=== PATIENT | male | born 1965 | race Two or more races ===

== ENCOUNTER 2022-04-07 16:16 | Emergency (ER) | payer OTHER, SELFPAY ==
--- NOTE | ~2022-04-07 | XR_ITS ---
EXAMINATION: XR CHEST CLINICAL INFORMATION: Chest pain. COMPARISON: None TECHNIQUE: Frontal view of the chest was obtained. FINDINGS: No significant abnormality is noted involving the heart, lungs, mediastinum, bony thorax or soft tissues. XR/XR chest 1V IMPRESSION: No acute cardiopulmonary process.
--- NOTE | ~2022-04-07 | CT_ITS ---
EXAMINATION: CT ANGIOGRAM OF THE CHEST WITH AND WITHOUT CONTRAST (CT PULMONARY ANGIOGRAM FOR PE) CLINICAL INFORMATION: Reason for Exam Mid chest pain with shortness of breath?pe COMPARISON: None TECHNIQUE: Prior to contrast administration, noncontrast localization images were obtained. Subsequently, multidetector volumetric imaging was performed from the thoracic inlet to below the diaphragms following the administration of 75 mL Omnipaque 350 intravenous contrast. No contrast reaction reported Sagittal, coronal, and MIP oblique sagittal reformatted images were obtained on the CT workstation, uploaded to PACS, and reviewed. This CT examination was performed using dose optimization techniques as appropriate, variously including the following: *Automated exposure control *Adjustment of mA and/or kV according to patient size (this includes techniques or standardized protocols for targeted exams where dose is matched to indication/reason for exam; i.e. extremities or head) *Use of iterative reconstruction technique Total exam dose-length product 334 mGy-cm FINDINGS: QUALITY OF STUDY/CONTRAST BOLUS: Satisfactory. PULMONARY ARTERIES: No central or segmental pulmonary emboli. THORACIC AORTA: No aneurysm or dissection. LUNG: No focal consolidation, nodules or masses. PLEURA: No pleural effusion or pneumothorax. MEDIASTINUM: Normal heart size. No pericardial effusion. No hilar or mediastinal lymphadenopathy. No evidence of septal bowing or right heart strain. CHEST WALL/AXILLA: No axillary or internal mammary lymphadenopathy. OSSEOUS STRUCTURES: No acute or suspicious osseous abnormality. UPPER ABDOMEN: Gallstones. No reflux of contrast into the hepatic veins to suggest elevated right heart pressures. CT/CT angio chest PE protocol IMPRESSION: No evidence of pulmonary embolism. Gallstones. VTE: negative
--- NOTE | 2022-04-07 16:18 | ECG_ITS ---
Test Reason : cp Blood Pressure : / mmHG Vent. Rate : 060 BPM Atrial Rate : 060 BPM P-R Int : 154 ms QRS Dur : 090 ms QT Int : 378 ms P-R-T Axes : 063 022 009 degrees QTc Int : 378 ms Normal sinus rhythm Normal ECG No previous ECGs available Referred By: Generic ED Physician Electronically Signed By:DENITA LUX MD
[2022-04-07 16:26] VITALS: BP 146/85; PULSE 70; RESP 18; TEMP 36.4; O2SAT 97; BMI 31.6
[2022-04-07 16:30] LABS: Basophils Percent Auto 0.4 % (0-2); Eosinophils Percent Auto 0.4 % (0-4); Hematocrit 41.8 % (42.0-52.0); Hemoglobin 14.5 g/dl (14.0-18.0); Imm Gran Abs Auto 0.04 X10*3/uL (0.00-0.03); Imm Gran Pct Auto 0.4 % (0.0-0.4); Lymphocytes Absolute Auto 1.7 X10*3/uL (1.2-4.9); Lymphocytes Percent Auto 15.6 % (20-40); MANUAL DIFF FLAG NO; Mean Corpuscular HGB Conc 34.7 g/dl (31.0-36.0); Mean Corpuscular Hemoglobin 32.3 pg (27.0-33.0); Mean Corpuscular Volume 93.1 fL (80.0-98.0); Mean Platelet Volume 9.2 fL (9.4-12.4); Monocytes Absolute Auto 0.8 X10*3/uL (0.1-1.2); Monocytes Percent Auto 7.5 % (2-11); Neutrophils Absolute Auto 8.1 x10*3/uL (2.0-8.3); Neutrophils Percent Auto 75.7 % (45-73); Platelet Count 221 X10*3/uL (160-400); Red Blood Count 4.49 X10*6/uL (4.60-5.80); Red Cell Distribution Width 11.9 % (11.0-16.0); White Blood Count 10.7 X10*3/uL (4.8-10.8)
[2022-04-07 16:46] LABS: Anion Gap 16 (12-20); Blood Urea Nitrogen 21 mg/dL (9-16); Carbon Dioxide 25 mmol/L (22-29); Chloride 106 mmol/L (96-108); Creatinine Clr Calc Pharmacy 76.1; Estimated Glomerular Filt Rate > 60; Glucose Random 123 mg/dL (60-115); Potassium 4.9 mmol/L (3.3-5.1); Sodium 142 mmol/L (135-145)
[2022-04-07 16:53] LABS: Troponin-I High Sensitivity < 3.5 ng/L (<3.5-35.0)
--- NOTE | 2022-04-07 21:46 | ED_ITS ---
HPI - Chest Pain General Chief Complaint: Chest Pain Stated Complaint: chest pain Time Seen by Provider: 04/07/22 21:46 Source: patient Mode of arrival: ambulatory Limitations: no limitations History of Present Illness HPI narrative: Patient with no significant past medical history noticed mid chest pain into the back since 13:00 while working had the air blower on his back for just 1 hour patient has similar pain about 2 months ago lasted only for few hours. No abdominal pain no nausea no vomiting no family history of sudden cardiac no history of substance abuse Related Data Previous Rx's Medication Instructions Recorded cyclobenzaprine 10 mg tablet 10 mg PO Q8H #20 tabs 04/07/22 ibuprofen 600 mg tablet 600 mg PO Q6H PRN pain #30 tabs 04/07/22 tramadol 50 mg tablet 50 mg PO Q6H PRN pain #20 tabs 04/07/22 Allergies Allergy/AdvReac Type Severity Reaction Status Date / Time No Known Allergies Allergy Verified 04/07/22 16:26 Review of Systems Review of Systems: Yes all other systems are reviewed and are negative [facility] Social History Social History Advance Directives: No Advance Directives Information Provided: No Physical Exam Vital Signs: Vital Signs: Last Vital Signs Temp 98.1 F 04/07/22 23:35 Pulse 56 04/07/22 23:35 Resp 15 04/07/22 23:35 BP 155/81 H 04/07/22 23:35 Pulse Ox 98 04/07/22 23:35 O2 Del Method 04/07/22 23:35 BMI result Body Mass Index 31.6 Appearance: Alert. Oriented X3. No acute distress. Eyes: PERRLA, No Nystagmus ENT: Pharynx normal. Oral Mucosa moist Neck: Normal inspection. Neck supple. CVS: Normal heart rate and rhythm. Pulses normal. Respiratory: No respiratory distress. Equal air entry bilateral, no wheezing/rales/rhonchi tenderness to touch but chest in the front and on the rhomboids area in the back Abdomen: Soft and nontender. Bowel sounds are present, no mass palpable, no CVA tenderness Skin: Skin warm and dry. Normal skin color. Normal skin turgor. Extremities: No lower extremity edema. No calf tenderness Neuro: Oriented X 3. MDM - Chest Pain MDM Narrative Medical decision making narrative: Patient with clinically musculoskeletal pain tender to touch rhomboids area and mid chest sternum denies any pain in the abdomen Guerrero sign is negative CT chest was done to rule out PE as patient was complaining of severe pain which is negative incidentally noticed to have gallstones. Will discharge patient home on pain medication 2 sets of cardiac enzymes negative Lab Data Attestation: I reviewed the patient's lab results. Result diagrams: 04/07/22 16:24 04/07/22 16:24 Labs: Lab Results 04/07/22 04/07/22 04/07/22 Range/Units 16:24 16:24 16:24 WBC 10.7 (4.8-10.8) X10*3/uL RBC 4.49 L (4.60-5.80) X10*6/uL Hgb 14.5 (14.0-18.0) g/dl Hct 41.8 L (42.0-52.0) % MCV 93.1 (80.0-98.0) fL MCH 32.3 (27.0-33.0) pg MCHC 34.7 (31.0-36.0) g/dl RDW 11.9 (11.0-16.0) % Plt Count 221 (160-400) X10*3/uL MPV 9.2 L (9.4-12.4) fL Immature Gran % (Auto) 0.4 (0.0-0.4) % Neut % (Auto) 75.7 H (45-73) % Lymph % (Auto) 15.6 L (20-40) % [place] % (Auto) 7.5 (2-11) % Eos % (Auto) 0.4 (0-4) % Baso % (Auto) 0.4 (0-2) % Lymph # (Auto) 1.7 (1.2-4.9) X10*3/uL [place] # (Auto) 0.8 (0.1-1.2) X10*3/uL Eos # (Auto) 0.0 (0.0-0.4) X10*3/uL Baso # (Auto) 0.0 (0.0-0.2) X10*3/uL Abs Immat Gran (auto) 0.04 H (0.00-0.03) X10*3/uL Absolute Neuts (auto) 8.1 (2.0-8.3) x10*3/uL Absolute Nucleated RBC 0.000 (0.0-0.012) X10*3/uL Nucleated RBC % (auto) 0.0 (0.0-0.2) /100WBC PT (10.0-13.1) SEC INR (0.9-1.1) Sodium 142 (135-145) mmol/L Potassium 4.9 (3.3-5.1) mmol/L Chloride 106 (96-108) mmol/L Carbon Dioxide 25 (22-29) mmol/L Anion Gap 16 (12-20) BUN 21 H (9-16) mg/dL Creatinine 1.12 (0.5-1.4) mg/dL Estim Creat Clear Calc 76.1 Estimated GFR > 60 Random Glucose 123 H (60-115) mg/dL Calcium 9.0 (8.4-10.2) mg/dL Troponin I High Sens < 3.5 (<3.5-35.0) ng/L 04/07/22 04/07/22 Range/Units 22:08 22:08 WBC (4.8-10.8) X10*3/uL RBC (4.60-5.80) X10*6/uL Hgb (14.0-18.0) g/dl Hct (42.0-52.0) % MCV (80.0-98.0) fL MCH (27.0-33.0) pg MCHC (31.0-36.0) g/dl RDW (11.0-16.0) % Plt Count (160-400) X10*3/uL MPV (9.4-12.4) fL Immature Gran % (Auto) (0.0-0.4) % Neut % (Auto) (45-73) % Lymph % (Auto) (20-40) % [place] % (Auto) (2-11) % Eos % (Auto) (0-4) % Baso % (Auto) (0-2) % Lymph # (Auto) (1.2-4.9) X10*3/uL [place] # (Auto) (0.1-1.2) X10*3/uL Eos # (Auto) (0.0-0.4) X10*3/uL Baso # (Auto) (0.0-0.2) X10*3/uL Abs Immat Gran (auto) (0.00-0.03) X10*3/uL Absolute Neuts (auto) (2.0-8.3) x10*3/uL Absolute Nucleated RBC (0.0-0.012) X10*3/uL Nucleated RBC % (auto) (0.0-0.2) /100WBC PT 12.0 (10.0-13.1) SEC INR 1.0 (0.9-1.1) Sodium (135-145) mmol/L Potassium (3.3-5.1) mmol/L Chloride (96-108) mmol/L Carbon Dioxide (22-29) mmol/L Anion Gap (12-20) BUN (9-16) mg/dL Creatinine (0.5-1.4) mg/dL Estim Creat Clear Calc Estimated GFR Random Glucose (60-115) mg/dL Calcium (8.4-10.2) mg/dL Troponin I High Sens < 3.5 (<3.5-35.0) ng/L ECG Data ECG #1: Interpretation: Normal sinus rhythm heart rate 60 beats per minute normal interval normal axis no acute changes no acute ischemic Scores Heart Score History: -0- slightly suspicious ECG: -0- normal Age: -1- >45 - <65 Risk factory: -0- no risk factors known Troponin: -0- < or = normal limit Score: 1 Risk: 1.7% Discharge Plan Discharge Clinical Impression: Musculoskeletal chest pain, Gallstone Patient Disposition: Home, Self-Care Instructions: Gallstones (ED), Chest Wall Pain (ED) Additional Instructions: You have incidental finding of gallstones in the abdomen, your pain in the chest is likely musculoskeletal Follow-up with your PCP Avoid fried food Follow-up with surgeon if pain in abdomen get worse Tiene un hallazgo incidental de c?lculos biliares en el abdomen, es probable que bryan dolor en el pecho sea musculoesquel?josh Seguimiento con bryan PCP Ashley la comida frita Seguimiento con el cirujano si el dolor en el abdomen empeora Prescriptions: New cyclobenzaprine 10 mg tablet 10 mg PO Q8H Qty: 20 0RF tramadol 50 mg tablet 50 mg PO Q6H PRN (Reason: pain) Qty: 20 0RF ibuprofen 600 mg tablet 600 mg PO Q6H PRN (Reason: pain) Qty: 30 0RF Referrals: Talon Mendez MD [Physician] - 1 week Print Language: Pakistani
[2022-04-07 22:16] VITALS: BP 130/79; PULSE 62; RESP 16; TEMP 36.8; O2SAT 96
[2022-04-07] MEDS: Ketorolac Tromethamine 30 MG/ML VIAL IVPUSH (22:18)
[2022-04-07 22:36] LABS: Troponin-I High Sensitivity < 3.5 ng/L (<3.5-35.0)
[2022-04-07] MEDS: iohexoL 350 MG/ML 100 ML INFUS..BTL IV (22:42)
[2022-04-07 23:35] VITALS: BP 155/81; PULSE 56; RESP 15; TEMP 36.7; O2SAT 98
[2022-04-07 23:44] LABS: Alanine Aminotransferase 44 U/L (0-40); Albumin Level 4.3 g/dL (3.5-5.0); Alkaline Phosphatase 66 U/L (39-117); Aspartate Amino Transferase 44 U/L (5-37); Bilirubin Direct 0.2 mg/dL (0.0-0.5); Bilirubin Total 0.4 mg/dL (0.0-1.0); Lipase 37 U/L (8-78); Total Protein 7.4 g/dL (6.5-8.0)
[2022-04-07] MEDS: Cyclobenzaprine HCl 10 MG TABLET PO (23:56)
[2022-04-07] MEDS: traMADoL HCL 50 MG TABLET PO (23:57)
== END 2022-04-08 00:02 | disposition home or self-care (01) ==
PROVIDERS: Emergency Provider Internal Medicine
DX: R07.89 Other chest pain (principal); K80.20 Calculus of gallbladder without cholecystitis without obstruction
CPT/HCPCS: 36415; 71045; 71275; 80048; 80076; 83690; 84484; 85025; 85610; 93005; 96374; 99284; J1885; Q9967

== ENCOUNTER 2022-09-30 09:07 | Emergency (ER) | payer OTHER, SELFPAY ==
--- NOTE | ~2022-09-30 | MR_ITS ---
EXAMINATION: MR CHOLANGIOPANCREATOGRAPHY CLINICAL INFORMATION: Reason for Exam RUQ pain, gallstone in cystic duct vs common duct. COMPARISON: CT from today. TECHNIQUE: Multiple routine MRI sequences through the abdomen were obtained. Heavily T2 weighted images were performed utilizing a dedicated MRCP technique. Contrast was not utilized for the study. FINDINGS: Biliary system: The common bile duct is normal in course and caliber with no evidence for intra-or extrahepatic biliary ductal dilatation. Common bile duct measures 0.3 cm. No intraluminal filling defects are appreciated. The cystic duct is also well visualized, not showing any filling defect. It should be noted that the stones which were seen in the gallbladder on prior CT are also not clearly visualized on this MRI. Gallbladder: The stone seen on prior CT are not visualized. No wall thickening or adjacent inflammation. Pancreatic duct: The pancreatic duct is normal in course and caliber with no evidence for pancreatic ductal obstruction. Liver parenchyma is homogeneous in signal with no focal hepatic lesion appreciated. No visualized abnormalities are seen in the kidneys, adrenals, pancreatic parenchyma, or spleen. MR/MR MRCP IMPRESSION: 1. No biliary ductal dilatation. No intraluminal filling defects seen within the common bile duct or cystic duct. 2. The gallstones seen on prior CT are not visualized on this MRI.
--- NOTE | ~2022-09-30 | CT_ITS ---
EXAMINATION: CT ABDOMEN WITHOUT CONTRAST CLINICAL INFORMATION: Right upper quadrant pain COMPARISON: CT angiogram chest 04/07/2020 TECHNIQUE: Contiguous axial thin section helical images of the abdomen were performed without contrast. The data set was reformatted in the coronal and sagittal planes and reviewed on an independent workstation. This CT examination was performed using dose optimization techniques as appropriate, variously including the following: *Automated exposure control *Adjustment of mA and/or kV according to patient size (this includes techniques or standardized protocols for targeted exams where dose is matched to indication/reason for exam; i.e. extremities or head) *Use of iterative reconstruction technique DLP: 587 mGy-cm FINDINGS: LUNG BASES: 4 mm pleural-based right lower lobe pulmonary nodule unchanged when compared to 04/07/2022. Interstitial prominence that had been present previously is no longer seen. LIVER, GALLBLADDER, AND BILIARY TREE: The liver is normal in size, shape, and attenuation. No focal hepatic lesion or biliary ductal dilatation is present. The gallbladder is distended with stones in the gallbladder neck and possibly cystic duct. Gallbladder stones were seen at the time of the 04/07/2022 study but stone in the cystic duct was not present at that time. PANCREAS: Unremarkable. SPLEEN: Unremarkable. ADRENAL GLANDS: Unremarkable. KIDNEYS AND URETERS: The kidneys are normal in size, shape, and attenuation. There is a single tiny 2 mm nonobstructing punctate calcification in the mid left kidney (7:52). No hydronephrosis, hydroureter, or additional calculi seen. No perinephric stranding. BLADDER: Unremarkable. GASTROINTESTINAL TRACT: The small and large bowel are unremarkable. The appendix is unremarkable. ABDOMINAL WALL: No significant hernia is appreciated. LYMPH NODES: No retroperitoneal lymphadenopathy. VASCULAR: Unremarkable. PELVIC VISCERA: Mild BPH. Seminal vesicles normal OSSEOUS STRUCTURES: Mild degenerative changes are present in the spine. CT/CT abdomen wo IV con IMPRESSION: 1. Distended gallbladder with stones in the gallbladder neck and possibly cystic duct. Gallbladder stones were seen at the time of the 04/07/2022 study but stone in the cystic duct was not present at that time. If further evaluation is needed, right upper quadrant ultrasound may be of value. 2. Tiny punctate nonobstructing left renal calculus. 3. Mild BPH. 4. 4 mm right lower lobe pulmonary nodule unchanged when compared to 04/07/2020. Fleischner guidelines were followed.
[2022-09-30 09:16] VITALS: BP 177/92; PULSE 70; RESP 18; TEMP 36.8; O2SAT 99; BMI 31.6
[2022-09-30] MEDS: Ketorolac Tromethamine 30 MG/ML VIAL IVPUSH (09:40)
[2022-09-30 09:41] LABS: MANUAL DIFF FLAG NO
--- NOTE | 2022-09-30 09:43 | PC.NURSE ---
patient a/ox4 . slickrla . heart rate regular at 70 beats per minute . breathing even and unlabored . skin moist pink and warm . abdomen tight . rebound rebound tenderness noted in right flank that patient report radiates to his back . reports 10 out of 10 pain . patient is tearful . IV placed in left forearm . labs obtained and sent . IVP toradal administered for pain as ordered . patient to CT for images . patient aware of plan of care .
[2022-09-30 09:44] LABS: Basophils Percent Auto 0.2 % (0-2); Eosinophils Percent Auto 0.1 % (0-4); Hematocrit 43.3 % (42.0-52.0); Hemoglobin 15.3 g/dl (14.0-18.0); Imm Gran Abs Auto 0.03 X10*3/uL (0.00-0.03); Imm Gran Pct Auto 0.4 % (0.0-0.4); Lymphocytes Absolute Auto 0.8 X10*3/uL (1.2-4.9); Lymphocytes Percent Auto 9.8 % (20-40); Mean Corpuscular HGB Conc 35.3 g/dl (31.0-36.0); Mean Corpuscular Volume 90.6 fL (80.0-98.0); Mean Platelet Volume 9.1 fL (9.4-12.4); Monocytes Absolute Auto 0.4 X10*3/uL (0.1-1.2); Monocytes Percent Auto 4.3 % (2-11); Neutrophils Absolute Auto 7.2 x10*3/uL (2.0-8.3); Neutrophils Percent Auto 85.2 % (45-73); Platelet Count 216 X10*3/uL (160-400); Red Blood Count 4.78 X10*6/uL (4.60-5.80); Red Cell Distribution Width 11.5 % (11.0-16.0); White Blood Count 8.4 X10*3/uL (4.8-10.8)
[2022-09-30 10:01] LABS: Alanine Aminotransferase 80 U/L (0-40); Albumin Level 4.3 g/dL (3.5-5.0); Alkaline Phosphatase 80 U/L (39-117); Anion Gap 17 (12-20); Aspartate Amino Transferase 29 U/L (5-37); Bilirubin Total 0.5 mg/dL (0.0-1.0); Blood Urea Nitrogen 15 mg/dL (9-16); Calcium 9.5 mg/dL (8.4-10.2); Carbon Dioxide 23 mmol/L (22-29); Chloride 106 mmol/L (96-108); Creatinine Clr Calc Pharmacy 92.6; Estimated Glomerular Filt Rate > 60; Glucose Random 154 mg/dL (60-115); Magnesium 1.9 mg/dL (1.6-2.6); Potassium 4.1 mmol/L (3.3-5.1); Sodium 142 mmol/L (135-145); Total Protein 7.6 g/dL (6.5-8.0)
[2022-09-30] MEDS: oxyCODONE HCl Immed Release 5 MG TABLET PO (10:37)
[2022-09-30 10:38] VITALS: BP 155/94; PULSE 64; RESP 18; TEMP 36.7; O2SAT 98
--- NOTE | 2022-09-30 10:40 | PC.NURSE ---
patient medicated with 5mg oxycodone per orders for pain level of 5 out of 10 in his abdomen / right flank area that radiates to his back . . patient reports some relief from his pain from the toradol IVP previously administered . patient is aware of plan of care .
[2022-09-30 10:42] LABS: Amylase 63 U/L (28-100); Lipase 15 U/L (8-78)
--- NOTE | 2022-09-30 12:37 | PC.NURSE ---
patient transport to MRI for imaging . patient aware o plan of care.
[2022-09-30 14:11] VITALS: BP 132/87; PULSE 68; RESP 16; O2SAT 95
--- NOTE | 2022-09-30 14:31 | ED.ABDPAIN ---
HPI - Abdominal Pain General Chief Complaint: Abdominal Pain Stated Complaint: abdominal pain Time Seen by Provider: 09/30/22 09:10 Source: patient Mode of arrival: ambulatory Limitations: language barrier History of Present Illness HPI narrative: 56 year old Swiss-speaking male past medical history gallstones presents the emergency department with complaints of RUQ abdominal and flank pain starting this morning with associated nausea and vomiting. He describes the pain as continuous, aching, 10/10. He reports he has modified his diet since his initial diagnosis of gallstones and manged his weight. He reports he has been eating larger meals at night and is concerned that this may be leading to his pain. He denies any melena, hematochezia, hematemesis. Pt denies any recent illness, sick contacts, paresthesias, weakness, fever, chills, nausea, vomiting, diarrhea, constipation, headache, or vision changes. MD elicited complaint: abdominal pain Onset (ago): hour(s) Pain Consistency: constant Location: RUQ Severity: similar to previous episodes Pain scale (0-10): 10 Quality: aching Radiation: none Migration to: no migration Exacerbating factors: movement Relieving factors: nothing Associated symptoms: denies other symptoms Related Data Previous Rx's Medication Instructions Recorded cyclobenzaprine 10 mg tablet 10 mg PO Q8H #20 tabs 04/07/22 ibuprofen 600 mg tablet 600 mg PO Q6H PRN pain #30 tabs 04/07/22 tramadol 50 mg tablet 50 mg PO Q6H PRN pain #20 tabs 04/07/22 oxycodone 5 mg capsule 5 mg PO BID PRN pain #5 caps 09/30/22 Allergies Allergy/AdvReac Type Severity Reaction Status Date / Time No Known Allergies Allergy Verified 04/07/22 16:26 Review of Systems Review of Systems In addition to documented HPI above, the additional ROS was obtained: CONSTITUTIONAL: Denies fever, chills, weakness, fatigue, headache, night sweats, or weight loss EYES: Denies vision changes, eye pain, swelling, redness, foreign body, discharge ENT: Hearing normal. Denies sore throat, swallowing difficulty, throat tightness, hoarse voice, congestion, or ear pain CV: Denies chest pain or epigastric pain. No edema, palpitations, or dyspnea on exertion RESP: Denies shortness of breath. Denies cough, wheezing, dyspnea. Denies smoke exposure GI: Denies constipation or diarrhea. No hematemesis, melena, or hematochezia. : Denies dysuria, urinary frequency, urinary incontinence/retention, urgency. Denies flank pain or hematuria MSK: Denies recent trauma, change in gait, myalgias, joint swelling or pain SKIN: Denies no lesions, rashes, or sores NEURO: Denies new numbness, tingling, dizziness, paresthesias or weakness. No loss of consciousness. Denies headache ENDOCRINE: Denies unexpected weight loss. Denies polyuria, polydipsia. No temperature intolerance HEME/ONC: Denies bleeding disorders, easy bruising, or lymphadenopathy PSYCH: Denies anxiety/panic, depression, SI/HI, or social issues. Yes all other systems are reviewed and are negative [facility] Past Medical History Attestation statement: The following information was validated with the patient. Source: old records reviewed Social History Social History Alcohol intake: never Smoked in Last 30 Days: No Advance Directives: No Physical Exam ED Vital Signs: Vital Signs - 24 hr 09/30/22 09:16 09/30/22 10:38 09/30/22 14:11 Temperature 98.2 F 98.0 F Pulse Rate 70 64 68 Respiratory Rate 18 18 16 Blood Pressure 177/92 H 155/94 H 132/87 Pulse Oximetry 99 98 95 Oxygen Delivery Method Room Air Room Air Room Air 09/30/22 15:15 Temperature 97.9 F Pulse Rate 88 Respiratory Rate 18 Blood Pressure 138/87 Pulse Oximetry 97 Oxygen Delivery Method Room Air BMI result Body Mass Index 31.6 Nursing notes and vital signs reviewed. GENERAL APPEARANCE: A&0 x 4, generally well appearing, appears uncomfortable HENMT: Normal to inspection, atraumatic, face symmetrical. Normal external ears, nose, and oropharynx clear. EYE: PERRLA, EOM intact, structures appear normal NECK: Supple without lymphadenopathy. No stiffness or restricted ROM. CHEST: Normal to inspection HEART: Normal rate and regular rhythm, normal S1/S2, no M/R/G LUNGS: LS CTA, moving air well. Able to speak in complete sentences. No crackles, wheezes, or rhonchi auscultated ABDOMEN: Soft, nondistended, tender in RUQ. Normal bowel sounds noted BACK: No CVAT, no obvious deformity EXTREMITIES: Moving all extremities without difficulty. No cyanosis, clubbing, or edema. Normal capillary refill. NEUROLOGICAL: Alert and oriented, moving all 4 extremities with equal strength. CN not formally tested but appearing grossly intact. Observed to ambulate with normal gait. Cognition normal SKIN: Warm and dry without any lesions, rash, or visible sores PSYCH: Cooperative, normal affect, normal thought process Course Course Course Narrative: 09: Plan for bloodwork including amylase and lipase. CT abdomen ordered. IV toradol ordered for pain. 1045: Spoke with Dr Goodwin, general surgeon service delivery management consultant, regarding pt with recommendation for MRCP 1315: MRCP showing no biliary dilation, no defects within common bile duct or cystic duct. No gallbladder wall thickening, Medical Decision Making Medical Decision Making [facility] Narrative: 56 year old Swiss-speaking male past medical history gallstones presents the emergency department with complaints of RUQ abdominal and flank pain starting this morning with associated nausea and vomiting. Toradol and Oxycodone given with reduction in pain. Blood work unremarkable. CT abdomen showing distended gallbladder with stones in the gallbladder neck and possibly cystic duct, small nonobstructing left renal calculi, mild BPH, and a 4 mm right lower lobe pulmonary nodule that is unchanged when compared to previous CT done on 04/07/20. MRCP showing no biliary duct dilation, no visualization of gallstones previously seen on CT. History, physical, and diagnosis consistent with biliary colic. Low suspicion for peptic ulcer disease, acute cholycystitis, liver disease, GERD. Patient is safe for discharge at this time with plan to manage discomfort with [id number] Tylenol and/or NSAIDS, and prescribed oxycodone as directed. HPI, PE, diagnostics, and plan discussed with patient and family with no unanswered questions at this time. Patient educated to return to the emergency department with new, worsening, or concerning emergent symptoms. Recommended to follow-up with there primary care provider in addition to general surgery for further treatment and management. *Refer to Course for additional information on consultations, diagnostic interpretation, consultations, emergency department stay, conversations with patient and family, shared decision making with patient, and more information on medical decision making* Lab Data [facility] Lab Attestation statement: I reviewed the patient's lab results. 09/30/22 09:36 09/30/22 09:36 Labs: Lab Results 09/30/22 09/30/22 Range/Units 09:36 09:36 WBC 8.4 (4.8-10.8) X10*3/uL RBC 4.78 (4.60-5.80) X10*6/uL Hgb 15.3 (14.0-18.0) g/dl Hct 43.3 (42.0-52.0) % MCV 90.6 (80.0-98.0) fL MCH 32.0 (27.0-33.0) pg MCHC 35.3 (31.0-36.0) g/dl RDW 11.5 (11.0-16.0) % Plt Count 216 (160-400) X10*3/uL MPV 9.1 L (9.4-12.4) fL Immature Gran % (Auto) 0.4 (0.0-0.4) % Neut % (Auto) 85.2 H (45-73) % Lymph % (Auto) 9.8 L (20-40) % Redwood % (Auto) 4.3 (2-11) % Eos % (Auto) 0.1 (0-4) % Baso % (Auto) 0.2 (0-2) % Lymph # (Auto) 0.8 L (1.2-4.9) X10*3/uL [place]wood # (Auto) 0.4 (0.1-1.2) X10*3/uL Eos # (Auto) 0.0 (0.0-0.4) X10*3/uL Baso # (Auto) 0.0 (0.0-0.2) X10*3/uL Abs Immat Gran (auto) 0.03 (0.00-0.03) X10*3/uL Absolute Neuts (auto) 7.2 (2.0-8.3) x10*3/uL Absolute Nucleated RBC 0.000 (0.0-0.012) X10*3/uL Nucleated RBC % (auto) 0.0 (0.0-0.2) /100WBC Sodium 142 (135-145) mmol/L Potassium 4.1 (3.3-5.1) mmol/L Chloride 106 (96-108) mmol/L Carbon Dioxide 23 (22-29) mmol/L Anion Gap 17 (12-20) BUN 15 (9-16) mg/dL Creatinine 0.92 (0.5-1.4) mg/dL Estim Creat Clear Calc 92.6 Estimated GFR > 60 Random Glucose 154 H (60-115) mg/dL Calcium 9.5 (8.4-10.2) mg/dL Magnesium 1.9 (1.6-2.6) mg/dL Total Bilirubin 0.5 (0.0-1.0) mg/dL AST 29 (5-37) U/L ALT 80 H (0-40) U/L Alkaline Phosphatase 80 (39-117) U/L Total Protein 7.6 (6.5-8.0) g/dL Albumin 4.3 (3.5-5.0) g/dL Amylase 63 (28-100) U/L Lipase 15 (8-78) U/L Radiology Impression Discussion of test interpretation with radiology: I have reviewed the radiologist's reading. Radiologist Impression: I have independently reviewed the CT abdomen showing distended gallbladder with stones in the gallbladder neck and possibly cystic duct, small nonobstructing left renal calculi, mild BPH, and a 4 mm right lower lobe pulmonary nodule that is unchanged when compared to previous CT done on 04/07/2020 EXAMINATION: CT ABDOMEN WITHOUT CONTRAST CLINICAL INFORMATION: Right upper quadrant pain? COMPARISON: CT angiogram chest 04/07/2020? TECHNIQUE: Contiguous axial thin section helical images of the abdomen were performed without contrast. The data set was reformatted in the coronal and sagittal planes and reviewed on an independent workstation. This CT examination was performed using dose optimization techniques as appropriate, variously including the following: *Automated exposure control *Adjustment of mA and/or kV according to patient size (this includes techniques or standardized protocols for targeted exams where dose is matched to indication/reason for exam; i.e. extremities or head) *Use of iterative reconstruction technique DLP: 587 mGy-cm FINDINGS: LUNG BASES: 4 mm pleural-based right lower lobe pulmonary nodule unchanged when compared to 04/07/2022. Interstitial prominence that had been present previously is no longer seen. LIVER, GALLBLADDER, AND BILIARY TREE: The liver is normal in size, shape, and attenuation. No focal hepatic lesion or biliary ductal dilatation is present. The gallbladder is distended with stones in the gallbladder neck and possibly cystic duct. Gallbladder stones were seen at the time of the 04/07/2022 study but stone in the cystic duct was not present at that time. PANCREAS: Unremarkable.? SPLEEN: Unremarkable.? ADRENAL GLANDS: Unremarkable.? KIDNEYS AND URETERS: The kidneys are normal in size, shape, and attenuation. There is a single tiny 2 mm nonobstructing punctate calcification in the mid left kidney (7:52). No hydronephrosis, hydroureter, or additional calculi seen. No perinephric stranding. ? BLADDER: Unremarkable.? GASTROINTESTINAL TRACT: The small and large bowel are unremarkable. The appendix is unremarkable.? ABDOMINAL WALL: No significant hernia is appreciated.? LYMPH NODES: No retroperitoneal lymphadenopathy. VASCULAR: Unremarkable. PELVIC VISCERA: Mild BPH. Seminal vesicles normal? OSSEOUS STRUCTURES: Mild degenerative changes are present in the spine. ? CT/CT abdomen wo IV con IMPRESSION: 1.? Distended gallbladder with stones in the gallbladder neck and possibly cystic duct. Gallbladder stones were seen at the time of the 04/07/2022 study but stone in the cystic duct was not present at that time. If further evaluation is needed, right upper quadrant ultrasound may be of value. 2.? Tiny punctate nonobstructing left renal calculus. 3.? Mild BPH. 4.? 4 mm right lower lobe pulmonary nodule unchanged when compared to 04/07/2020. ? Fleischner guidelines were followed. ? Dictated By: Jim Servin MD Signed By: <Electronically signed by Jim Servin MD in OV> 09/30/22 1020 DD/ 0958 TD/TT:? Calculating Machine Mechanic: SS I have independently reviewed the MRCP showing no biliary duct dilation, no visualization of gallstones previously seen on CT. EXAMINATION: MR CHOLANGIOPANCREATOGRAPHY CLINICAL INFORMATION: Reason for Exam RUQ pain, gallstone in cystic duct vs common duct. COMPARISON: CT from today. TECHNIQUE: Multiple routine MRI sequences through the abdomen were obtained. Heavily T2 weighted images were performed utilizing a dedicated MRCP technique. Contrast was not utilized for the study. FINDINGS: Biliary system: The common bile duct is normal in course and caliber with no evidence for intra-or extrahepatic biliary ductal dilatation. Common bile duct measures 0.3 cm. No intraluminal filling defects are appreciated. The cystic duct is also well visualized, not showing any filling defect. It should be noted that the stones which were seen in the gallbladder on prior CT are also not clearly visualized on this MRI. Gallbladder:? The stone seen on prior CT are not visualized. No wall thickening or adjacent inflammation. Pancreatic duct: The pancreatic duct is normal in course and caliber with no evidence for pancreatic ductal obstruction. Liver parenchyma is homogeneous in signal with no focal hepatic lesion appreciated. No visualized abnormalities are seen in the kidneys, adrenals, pancreatic parenchyma, or spleen. MR/MR MRCP IMPRESSION: 1.? No biliary ductal dilatation. No intraluminal filling defects seen within the common bile duct or cystic duct. 2.? The gallstones seen on prior CT are not visualized on this MRI. ? Dictated By: Pool Bunn MD Signed By: <Electronically signed by Pool Bunn MD in OV> 09/30/22 1311 DD/ 1245 TD/TT:? Calculating Machine Mechanic: ECOH Medications Administered Discontinued Medications Generic Name Dose Route Start Last Admin Trade Name Freq PRN Reason Stop Dose Admin Ketorolac Tromethamine 30 mg 09/30/22 09:21 09/30/22 09:40 Ketorolac Tromethamine 30 Mg/Ml Vial IVPUSH 09/30/22 09:22 30 mg ONCE ONE Administration Oxycodone HCl 5 mg 09/30/22 10:01 09/30/22 10:37 Oxycodone Hcl Immed Release 5 Mg Tablet PO 09/30/22 10:02 5 mg ONCE ONE Administration Discharge Plan Discharge Clinical Impression: Abdominal pain, Gallstones Patient Disposition: Home, Self-Care Instructions: Gallstones (ED), Abdominal Pain (ED) Additional Instructions: Experts recommend the following to help prevent gallstones: Eat more foods that are high in?fiber such as: fruits, vegetables, beans, and peas. whole grains including brown rice, oats, and whole wheat bread. Eat fewer?refined carbohydrates and less sugar. Eat healthy?fats like fish oil and olive oil, to help your?gallbladder?contract and empty on a regular basis. Avoid unhealthy fats, like those often found in desserts and fried foods. Please return to the emergency department new, worsening, or concerning emergent symptoms. Please follow-up with the primary care provider in addition to general surgery for further treatment and management. Oxycodone has been prescribed to your preferred pharmacy for control of pain. Please do not drive, drink alcohol, or use any sedating drugs/medications when taking Oxycodone Prescriptions: New oxycodone 5 mg capsule 5 mg PO BID PRN (Reason: pain) Qty: 5 0RF Rx Instructions: Partial Fill upon patient request. No Action cyclobenzaprine 10 mg tablet 10 mg PO Q8H Qty: 20 0RF tramadol 50 mg tablet 50 mg PO Q6H PRN (Reason: pain) Qty: 20 0RF ibuprofen 600 mg tablet 600 mg PO Q6H PRN (Reason: pain) Qty: 30 0RF Referrals: [facility] Family Medicine [Provider Group] [facility] Primary CareSheila [Provider Group] [facility] Primary CareChristy [Provider Group] Edu Goodwin MD [Physician] - Interventions: ED Discharge Assessment Last Done: 09/30/22 15:16 Discharge Date/Time: 09/30/22 15:16 Print Language: Swiss
--- NOTE | 2022-09-30 15:12 | PC.NURSE ---
patient a/ox4 . this nurse went over discharge instructions as ordered by provider . patient to return to Ed if symptoms worsen . patient to follow up with primary care . no questions at this time .
[2022-09-30 15:15] VITALS: BP 138/87; PULSE 88; RESP 18; TEMP 36.6; O2SAT 97
== END 2022-09-30 15:16 | disposition home or self-care (01) ==
PROVIDERS: Nurse Practitioner Family; Emergency Provider Emergency Medicine
DX: K80.20 Calculus of gallbladder without cholecystitis without obstruction (principal); R10.9 Unspecified abdominal pain; R10.11 Right upper quadrant pain
CPT/HCPCS: 36415; 74150; 74181; 80053; 82150; 83690; 83735; 85025; 96374; 99284; 99285; J1885

== ENCOUNTER 2022-10-16 15:01 | Outpatient (REF) | payer OTHER, SELFPAY ==
[2022-10-16 16:18] LABS: MANUAL DIFF FLAG NO
[2022-10-16 17:18] LABS: Basophils Percent Auto 0.3 % (0-2); Eosinophils Absolute Auto 0.1 X10*3/uL (0.0-0.4); Hematocrit 44.2 % (42.0-52.0); Hemoglobin 15.2 g/dl (14.0-18.0); Imm Gran Abs Auto 0.02 X10*3/uL (0.00-0.03); Imm Gran Pct Auto 0.3 % (0.0-0.4); Lymphocytes Absolute Auto 1.4 X10*3/uL (1.2-4.9); Lymphocytes Percent Auto 20.8 % (20-40); Mean Corpuscular HGB Conc 34.4 g/dl (31.0-36.0); Mean Corpuscular Hemoglobin 32.3 pg (27.0-33.0); Mean Platelet Volume 10.2 fL (9.4-12.4); Monocytes Absolute Auto 0.8 X10*3/uL (0.1-1.2); Monocytes Percent Auto 11.8 % (2-11); Neutrophils Absolute Auto 4.5 x10*3/uL (2.0-8.3); Neutrophils Percent Auto 65.8 % (45-73); Platelet Count 252 X10*3/uL (160-400); Red Cell Distribution Width 12.2 % (11.0-16.0); White Blood Count 6.9 X10*3/uL (4.8-10.8)
[2022-10-16 17:36] LABS: Estimated Average Glucose 108 mg/dL; Hemoglobin A1c % 5.4 %
[2022-10-16 17:54] LABS: Alanine Aminotransferase 739 U/L (0-40); Albumin Level 4.2 g/dL (3.5-5.0); Alkaline Phosphatase 291 U/L (39-117); Anion Gap 16 (12-20); Aspartate Amino Transferase 352 U/L (5-37); Bilirubin Total 4.4 mg/dL (0.0-1.0); Blood Urea Nitrogen 22 mg/dL (9-16); Calcium 10.4 mg/dL (8.4-10.2); Carbon Dioxide 30 mmol/L (22-29); Chloride 100 mmol/L (96-108); Estimated Glomerular Filt Rate > 60; Glucose Random 100 mg/dL (60-115); Potassium 4.6 mmol/L (3.3-5.1); Sodium 141 mmol/L (135-145); Total Protein 7.3 g/dL (6.5-8.0)
== END 2022-10-16 15:02 | disposition home or self-care (01) ==
LOC: HO.LAB 15:01
PROVIDERS: Visit Provider Surgery
DX: R10.9 Unspecified abdominal pain (principal); R93.5 Abnormal findings on diagnostic imaging of other abdominal regions, including retroperitoneum
CPT/HCPCS: 36415; 80053; 83036; 85025

== ENCOUNTER → 2022-11-02 10:28 | Outpatient (REF) | payer OTHER, SELFPAY ==
--- NOTE | ~2022-11-02 | NM_ITS ---
EXAMINATION: BILIARY TRACT IMAGING STUDY WITH CCK CLINICAL INFORMATION: Right upper quadrant abdominal pain. Abnormal findings on diagnostic imaging of other abdominal region.. COMPARISON: No previous biliary scan is available for comparison. MRCP dated 09/30/[address] scan of the abdomen also dated 09/30/2022 are available for comparison.. TECHNIQUE: Serial gamma scintillation camera images were obtained over the abdomen for a total observation period of 126 minutes following the intravenous administration of 5 mCi Tc-99m Mebrofenin. FINDINGS: There is good concentration of activity in the liver by 5 minutes post injection. Biliary activity is visualized by 10 minutes. The gallbladder is well visualized by 20 minutes. Small bowel is well visualized by 30 minutes. At 90 minutes post radiopharmaceutical injection, a 30-minute infusion of 1.6 micrograms Sincalide was then begun and an additional 40 minutes of images were obtained. There is good emptying of the gallbladder. By the end of the study there is good clearance of activity from the liver and visualization of diffuse small bowel activity. The calculated gallbladder ejection fraction is 95% (normal gallbladder ejection fraction is greater than 35%). NM/NM hepatobiliary w pharm IMPRESSION: Visualization of the gallbladder is evidence of a patent cystic duct and strong evidence against the diagnosis of acute cholecystitis. The common bile duct is patent. Gallbladder emptying and ejection fraction are normal. Liver function appears normal.
== END ==
LOC: HO.NUCMED 10:28
PROVIDERS: Visit Provider Surgery
DX: R93.5 Abnormal findings on diagnostic imaging of other abdominal regions, including retroperitoneum (principal); R10.9 Unspecified abdominal pain
CPT/HCPCS: 78227; A9537; J2805

== ENCOUNTER 2022-11-09 14:28 | Outpatient (REF) | payer OTHER, SELFPAY ==
[2022-11-09 16:39] LABS: Estimated Average Glucose 120 mg/dL; Hemoglobin A1c % 5.8 %
[2022-11-09 17:02] LABS: Alanine Aminotransferase 33 U/L (0-40); Albumin Level 4.1 g/dL (3.5-5.0); Alkaline Phosphatase 74 U/L (39-117); Anion Gap 12 (12-20); Aspartate Amino Transferase 20 U/L (5-37); Bilirubin Total 0.7 mg/dL (0.0-1.0); Blood Urea Nitrogen 20 mg/dL (9-16); Calcium 8.8 mg/dL (8.4-10.2); Carbon Dioxide 30 mmol/L (22-29); Chloride 106 mmol/L (96-108); Cholesterol 159 mg/dL; Estimated Glomerular Filt Rate > 60; Glucose Random 83 mg/dL (60-115); HDL Cholesterol 30 mg/dL; LDL Cholesterol Calculated 98 mg/dl; Potassium 4.2 mmol/L (3.3-5.1); Sodium 144 mmol/L (135-145); Triglycerides 156 mg/dL
[2022-11-11 05:39] LABS: HBS Num1 0.19 mIU/mL (0-7.99); HBc Num1 0.06 S/CO (0.00-0.79); HBsAGNum1 1.77 S/CO (0.00-0.99); HIV AB/AG Nonreactive (Nonreactive); HIV Num 1 0.06 S/CO (0.00-0.99); Hepatitis B Core Antibody Nonreactive (Nonreactive); ~Hepatitis B Surface Antibody NONREACTIVE (Nonreactive)
[2022-11-11 06:08] LABS: Hepatitis A Antibody IgG Nonreactive (Nonreactive); ~Hepatitis A Antibody IgG 0.35 S/CO (0.00-0.99)
[2022-11-11 09:46] LABS: ~HepC Num1 0.09 S/CO (0.00-0.79); ~Hepatitis C Antibody Nonreactive (Nonreactive)
[2022-11-11 11:17] LABS: HBsAGNum2 Reactive; HBsAGNum3 Reactive
[2022-11-11 11:22] LABS: Hepatitis B Surface Antigen Retest CNFM (Negative)
[2022-11-11 14:03] LABS: Hepatitis B Surface Antigen Rep Reactive (Negative); Neutralization % -4; R2 S/CO 1.56 S/CO
== END 2022-11-09 14:29 | disposition home or self-care (01) ==
LOC: HO.LAB 14:28
PROVIDERS: Visit Provider Internal Medicine
DX: R79.89 Other specified abnormal findings of blood chemistry (principal); K74.60 Unspecified cirrhosis of liver; R10.9 Unspecified abdominal pain
CPT/HCPCS: 36415; 80053; 80061; 83036; 86704; 86706; 86708; 86803; 87340; 87389

== ENCOUNTER 2022-11-11 07:38 | Outpatient (REF) | payer OTHER, SELFPAY ==
--- NOTE | ~2022-11-11 | US_ITS ---
EXAMINATION: US COMPLETE ABDOMEN WITH LIVER ELASTOGRAPHY CLINICAL INFORMATION: Abnormal LFTs COMPARISON: None. TECHNIQUE: Real-time imaging of the abdominal viscera. Noninvasive ultrasound liver fibrosis assessment is performed using Karen ElastPQ point quantification shear wave elastography (2D-SWE) with a C5-2 MHz transducer. Multiple elastography samples are obtained. FINDINGS: PANCREAS: Normal. The visualized pancreatic head and body are normal in appearance. The remainder of the pancreas is obscured from visualization by the overlying bowel gas. ABDOMINAL AORTA: The proximal, middle, and distal aortic segments are normal in caliber. INFERIOR VENA CAVA: Visualized portions are normal. LIVER: Normal. The liver demonstrates normal size, contour and echogenicity. No focal lesion or intrahepatic biliary duct dilatation. The right lobe measures 13.7 cm in length. The left lobe measures 7.4 cm in length. Portal flow is hepatopedal Shear wave liver elastography median stiffness is 1.34 m/s (reference: normal median stiffness is 1.3 m/s or less). IQR/median stiffness to assess sampling precision is 0.07 (reference: good quality data set is IQR/median stiffness of 0.15 or less). GALLBLADDER: The gallbladder is physiologically distended without evidence of stones, sludge, polyps, wall thickening or pericholecystic fluid. There are echogenic areas along the gallbladder with dirty shadowing suggestive of adenomyomatosis. COMMON BILE DUCT: Normal in caliber measuring 0.2 cm in diameter. RIGHT KIDNEY: Normal. No hydronephrosis. No renal calculi or focal parenchymal lesions. The kidney measures 11.3 cm in maximum dimension. LEFT KIDNEY: Normal. No hydronephrosis. No renal calculi or focal parenchymal lesions. The kidney measures 11.2 cm in maximum dimension. SPLEEN: Normal. The spleen measures 11.4 cm in maximum dimension. FREE FLUID: None. US/US abdomen comp w elastography IMPRESSION: 1. Adenomyomatosis but no echogenic gallstone. 2. Liver elastography: Median liver stiffness velocity measures 1.34 m/s suggestive of borderline high probably normal. REFERENCE: Society of Radiologists in Ultrasound Liver Stiffness Thresholds (2020): LIVER STIFFNESS THRESHOLDS: *Liver Stiffness equal or less than 1.3 m/s: High probability of being normal. *Liver Stiffness less than 1.7 m/s: In the absence of other known clinical signs, rules out compensated advanced chronic liver disease. *Liver Stiffness 1.7-2.1 m/s: Suggestive of compensated advanced chronic liver disease but need further test for confirmation. *Liver Stiffness over 2.1 m/s: Rules in compensated advanced chronic liver disease. *Liver Stiffness over 2.4 m/s: Suggestive of clinically significant portal hypertension. QUALITY OF DATA SET: *IQR/Median value equal or less than 0.15 implies a quality data set. *IQR/Median value over 0.15 implies a poor quality data set. SIGNIFICANT CHANGE FROM PRIOR EXAM: Significant change if liver stiffness measurement is 10% or greater from prior exam. OTHER CONSIDERATIONS: The stage of liver fibrosis may be overestimated in the setting of acute hepatitis, liver inflammation, elevated liver function tests, hepatic vascular congestion, obstructive cholestasis, non-fasting state, and infiltrative diseases such as amyloidosis and lymphoma. In some patients with NAFLD, the liver stiffness thresholds for compensated advanced chronic liver disease may be lower. In causes other than viral hepatitis and NAFLD, liver stiffness thresholds are not well established.
--- NOTE | ~2022-11-11 | US_ITS ---
EXAMINATION: US duplex arterial venous comp CLINICAL INFORMATION: Abnormal LFTs COMPARISON: None TECHNIQUE: Color and spectral Doppler evaluation of the hepatic vasculature. FINDINGS: HEPATIC VEINS: Patent with normal waveforms. PORTAL VEINS: Patent with normal waveforms and hepatopetal flow. HEPATIC ARTERIES: Normal upstroke and diastolic flow. INFERIOR VENA CAVA: Patent with normal waveforms. ABDOMINAL AORTA: The visualized proximal segment is normal in caliber. US/US duplex arterial venous comp IMPRESSION: Normal duplex evaluation of the hepatic vasculature
== END 2022-11-11 07:39 | disposition home or self-care (01) ==
LOC: HO.US 07:38
PROVIDERS: Visit Provider Internal Medicine Gastroenterology
DX: R94.5 Abnormal results of liver function studies (principal)
CPT/HCPCS: 76705; 76981; 93975

== ENCOUNTER → 2022-11-13 08:57 | Outpatient (BNVA) | payer OTHER, SELFPAY | PROVIDERS: Visit Provider Surgery | DX: Z13.89 Encounter for screening for other disorder (principal) ==

== ENCOUNTER → 2022-11-23 14:58 | Outpatient (BNVA) | payer OTHER, SELFPAY | PROVIDERS: Visit Provider Internal Medicine | DX: Z13.89 Encounter for screening for other disorder (principal) ==

== ENCOUNTER 2023-01-14 05:40 | Day surgery (SDC) | payer OTHER, SELFPAY ==
[2023-01-12 09:04] VITALS: BMI 28.4
--- NOTE | 2023-01-13 12:13 | HO.ANESPROP2 ---
Documented by User: Ginger Valerio NP 01/13/23 12:13 HPI - Anesthesia Eval Consult details Narrative: 57yo M for Upper Endoscopy PMFSH Active Problems Active Problems: All Active Problems (Updated 01/12/23 @ 09:04 by Seema Khoury RN) Abdominal pain (Acute) Abnormal CT of the abdomen (Acute) Abnormal LFTs (Acute) Adenomyomatosis of gallbladder (Acute) Past Medical History Medical History No pertinent past medical history Family History Family History Mother Thyroid condition Surgical History Surgical History History of appendectomy Social History Social History Household Members: Spouse Alcohol intake: never Patient Tobacco Use Status: Never used Tobacco Are you DNR?: No Advance Directives: No Advance Directives Information Provided: Yes Nutrition Risks: No Nutritional Risk Meds Allergies Allergy/AdvReac Type Severity Reaction Status Date / Time No Known Allergies Allergy Verified 01/14/23 06:13 Exam Exam Date and Time: January 13, 2023 1213 Height,Weight and Vital Signs: Height 5 ft 6 in Weight 79.832 kg Narrative Narrative: EKG 2021 Vent. Rate : 060 BPM ? ? Atrial Rate : 060 BPM ?? P-R Int : 154 ms? QRS Dur : 090 ms ? ? QT Int : 378 ms ? ? ? P-R-T Axes : 063 022 009 degrees ?? QTc Int : 378 ms ? Normal sinus rhythm Normal ECG No previous ECGs available ? Assessment and Plan Assessment Anesthesia Assessment: Chart Reviewed Documented by User: Maru Rojas MD 01/14/23 07:35 PMFSH Past Medical History Medical History No pertinent past medical history Family History Family History Mother Thyroid condition Family history of problems with anesthesia: No Surgical History Surgical History History of appendectomy History of Problems with Anesthesia: No Social History Social History Household Members: Spouse Alcohol intake: never Patient Tobacco Use Status: Never used Tobacco Are you DNR?: No Advance Directives: No Advance Directives Information Provided: Yes Nutrition Risks: No Nutritional Risk Meds Allergies Allergy/AdvReac Type Severity Reaction Status Date / Time No Known Allergies Allergy Verified 01/14/23 06:13 Exam Airway Mallampati Class: II TM Dist: >3cm Neck ROM: Full Loose/Missing/Broken Teeth: Yes, Upper and Lower (multiple missing upper front , ) Assessment and Plan Final Anesthetic Review Family History of Problems with Anesthesia: No History of Problems with Anesthesia: No NPO: Yes ASA Class: II Final Preanesthetic Review: No Changes in Pt Med Stat, Meds/Allgs Chart Reviewed, Consent Obtained/Reviewed and Anes Risks/Benef Reviewed Patient Risk: Low Procedure Risk: Low Anesthetic Plan Anesthetic Plan: MAC: Disposition: Standard PACU
[2023-01-14] MEDS: Lactated Ringers 1,000 ML 100 ML IVCONT (06:17)
[2023-01-14 06:18] VITALS: BP 114/66; PULSE 57; RESP 18; TEMP 36.3; O2SAT 98
--- NOTE | 2023-01-14 07:01 | MHC.SHP ---
Pre-Procedural Eval Section A Date of Service: 01/14/23 The patient is an INPATIENT: No The History & Physical has been completed within 30 days and I have reviewed it.: No Section B Chief Complaint: Acute abdomen Relevant Family History (Specify if Yes): No Relevant Social History: None Present Medications: see Short Stay Collaborative assessment Medical History: Significant History (Abdominal pain, elevated LFTs) History of Previous Operations: Relevant previous surgery/procedure and date(s) (History of appendicectomy) Allergies: Allergies Allergy/AdvReac Type Severity Reaction Status Date / Time No Known Allergies Allergy Verified 01/14/23 06:13 Review of Systems Sugical H&P ROS: Negative: Cardiovascular, Respiratory, Neurological and Gastrointestinal Exam Surgical H&P Exam: Normal: Heart, Normal: Lungs, Normal: Extremities and Normal: Abdomen Plan Diagnosis/Plan: Unchanged I have reviewed the history and physical and performed a pertinent physical examination on my patient. No changes have occurred unless specified. Time Spent With Patient Time: Total time managing care of this patient today ____ minutes.
--- NOTE | 2023-01-14 08:02 | W.PM.OPN ---
Operative Note Operative Note Date of Service: 01/14/23 Narrative: FLEXIBLE TRANSORAL UPPER GASTROINTESTINAL ENDOSCOPY WITH BIOPSIES Pre-op diagnosis: Abdominal pain, elevated LFTs Post-op diagnosis: Gastritis Endoscopist:? Jose Antonio Abebe MD Anesthesia:?MAC Consent: Indications for the procedure and potential complications of bleeding, perforation, reaction to medications and missed diagnosis were discussed with the patient and informed consent was obtained. Instrument: Olympus GIF H 190 mid size upper endoscope Monitoring: Vital signs and clinical assessment, continuous EKG monitoring, Pulse oximetry, Carbon Dioxide monitoring and blood pressure monitoring were done throughout the procedure. Procedure: The patient was placed in the left lateral decubitis position and pre-procedure medications were administered and a bite block was placed. The endoscope was inserted into the mouth and advanced under direct vision to the third part of duodenum. A careful inspection was made as the upper endoscope was withdrawn including a retroflexed examination of the proximal stomach; Findings and interventions are described below. Findings: Larynx: Normal Esophagus: GE junction at 40 cms. No esophagitis or Cody's. Stomach: Mild gastric erythema. Biopsies were obtained. Grade 2 flap valve on retroflexed examination of the cardia. Duodenum: Normal bulb and descending duodenum. Biopsies were obtained from 3rd part of the duodenum to check for celiac sprue. Duodenal papilla was visualized and appeared normal Intervention: Biopsies as noted above Impression and Post Procedure Diagnosis: Endoscopy Findings: STOMACH: Mild antral gastritis DUODENUM: Normal - biopsied to check for celiac sprue Plan: Await pathology results Patient has an appointment on 02/02/23 in the [facility] with Dr Norwood. Above findings were reviewed with the patient and Gastritis handout was given in the discharge area
[2023-01-14 08:05] VITALS: BP 97/66; PULSE 63; RESP 18; TEMP 36.6; O2SAT 97
[2023-01-14 08:20] VITALS: BP 103/67; PULSE 59; RESP 13; TEMP 36.6; O2SAT 98
== END 2023-01-14 08:42 | disposition home or self-care (01) ==
PROVIDERS: Visit Provider Internal Medicine Gastroenterology
PROC: 0DJ08ZZ Inspection of Upper Intestinal Tract, Via Natural or Artificial Opening Endoscopic (ICD-10-PCS; CPT 43235; principal; 2023-01-14 07:30)
DX: K29.50 Unspecified chronic gastritis without bleeding (principal); R79.89 Other specified abnormal findings of blood chemistry; Z79.899 Other long term (current) drug therapy
CPT/HCPCS: 43239; 88305; 88342

== ENCOUNTER → 2023-02-02 15:22 | Outpatient (BNVA) | payer OTHER, SELFPAY | PROVIDERS: Visit Provider Internal Medicine ==